=== PATIENT | male | born 1970 | race Two or more races ===

== ENCOUNTER 2021-06-22 09:24 | Outpatient (REF) | payer MEDICARE, MEDICAID, SELFPAY ==
[2021-06-22 09:41] LABS: MANUAL DIFF FLAG NO
[2021-06-22 10:29] LABS: Basophils Percent Auto 0.4 % (0-2); Eosinophils Absolute Auto 0.1 X10*3/uL (0.0-0.4); Eosinophils Percent Auto 2.3 % (0-4); Hematocrit 45.4 % (42.0-52.0); Hemoglobin 14.6 g/dl (14.0-18.0); Imm Gran Abs Auto 0.01 X10*3/uL (0.00-0.03); Imm Gran Pct Auto 0.2 % (0.0-0.4); Lymphocytes Absolute Auto 2.3 X10*3/uL (1.2-4.9); Lymphocytes Percent Auto 43.7 % (20-40); Mean Corpuscular HGB Conc 32.2 g/dl (31.0-36.0); Mean Corpuscular Hemoglobin 28.2 pg (27.0-33.0); Mean Corpuscular Volume 87.8 fL (80.0-98.0); Monocytes Absolute Auto 0.7 X10*3/uL (0.1-1.2); Monocytes Percent Auto 13.1 % (2-11); Neutrophils Absolute Auto 2.1 x10*3/uL (2.0-8.3); Neutrophils Percent Auto 40.3 % (45-73); Platelet Count 185 X10*3/uL (160-400); Red Blood Count 5.17 X10*6/uL (4.60-5.80); Red Cell Distribution Width 13.7 % (11.0-16.0); White Blood Count 5.2 X10*3/uL (4.8-10.8)
[2021-06-22 11:04] LABS: Alanine Aminotransferase 82 U/L (0-40); Albumin Level 4.2 g/dL (3.5-5.0); Alkaline Phosphatase 91 U/L (39-117); Anion Gap 13 (12-20); Aspartate Amino Transferase 47 U/L (5-37); Bilirubin Total 0.5 mg/dL (0.0-1.0); Blood Urea Nitrogen 12 mg/dL (9-16); Calcium 9.4 mg/dL (8.4-10.2); Carbon Dioxide 25 mmol/L (22-29); Chloride 104 mmol/L (96-108); Cholesterol 124 mg/dL; Estimated Glomerular Filt Rate > 60; Glucose Fasting 183 mg/dL (60-99); HDL Cholesterol 28 mg/dL; LDL Cholesterol Calculated 70 mg/dl; Potassium 4.2 mmol/L (3.3-5.1); Sodium 138 mmol/L (135-145); Total Protein 7.6 g/dL (6.5-8.0); Triglycerides 133 mg/dL
[2021-06-22 11:11] LABS: Thyroid Stimulating Hormone 1.08 uIU/mL (0.32-4.0)
[2021-06-27 14:01] LABS: Vitamin D 25-OH, D2 <4 ng/mL; Vitamin D 25-OH, D3 12 ng/mL; Vitamin D 25-OH, Total 12 ng/mL (30-100)
== END 2021-06-22 09:25 | disposition home or self-care (01) ==
LOC: HO.LAB 09:24
PROVIDERS: PCP Internal Medicine; Visit Provider Internal Medicine
DX: E66.9 Obesity, unspecified (principal); E55.9 Vitamin D deficiency, unspecified; G89.29 Other chronic pain; D64.9 Anemia, unspecified; E78.5 Hyperlipidemia, unspecified; M54.50 Low back pain, unspecified
CPT/HCPCS: 36415; 80053; 80061; 82306; 84443; 85025

== ENCOUNTER 2022-10-18 10:15 | Outpatient (REF) | payer MEDICARE, MEDICAID, SELFPAY ==
[2022-10-18 13:04] LABS: Alanine Aminotransferase 94 U/L (0-40); Albumin Level 4.1 g/dL (3.5-5.0); Alkaline Phosphatase 94 U/L (39-117); Anion Gap 12 (12-20); Aspartate Amino Transferase 68 U/L (5-37); Bilirubin Total 0.7 mg/dL (0.0-1.0); Blood Urea Nitrogen 10 mg/dL (9-16); Carbon Dioxide 23 mmol/L (22-29); Chloride 108 mmol/L (96-108); Cholesterol 125 mg/dL; Estimated Glomerular Filt Rate > 60; Glucose Fasting 114 mg/dL (60-99); HDL Cholesterol 30 mg/dL; LDL Cholesterol Calculated 66 mg/dl; Potassium 3.9 mmol/L (3.3-5.1); Sodium 139 mmol/L (135-145); Total Protein 7.8 g/dL (6.5-8.0); Triglycerides 147 mg/dL
[2022-10-18 13:21] LABS: Vitamin D 25-OH Total 37.3 ng/mL (>30)
[2022-10-18 14:02] LABS: Creatinine Urine 218.48 mg/dL; Microalbum/Creatinine Ratio Ur 6.4 ug/mg cr
== END 2022-10-18 10:16 | disposition home or self-care (01) ==
LOC: HO.LAB 10:15
PROVIDERS: PCP Internal Medicine; Visit Provider Internal Medicine
DX: E11.9 Type 2 diabetes mellitus without complications (principal); E55.9 Vitamin D deficiency, unspecified; E78.5 Hyperlipidemia, unspecified
CPT/HCPCS: 36415; 80053; 80061; 82043; 82306

== ENCOUNTER 2022-10-24 09:17 | Outpatient (AMB) | payer MEDICARE, MEDICAID, SELFPAY ==
--- NOTE | 2022-10-24 09:35 | A.OFFPC_ITS ---
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 Required: No Accompanied by: Self / Same As Patient Allergies penicillin V Allergy (Intermediate, Verified 10/24/22 09:49) rash Medication List - Last Reconciled 10/24/22 by Jonna Duarte MD blood sugar diagnostic (FreeStyle Lite Strips) Use 1 test strip once a day blood-glucose meter (FreeStyle Lite Meter kit) As directed cyclobenzaprine 10 mg PO TID 30 days lancets (FreeStyle Lancets) Use 1 lancet once a day lisinopril 2.5 mg PO DAILY 90 days metformin 500 mg PO BID 90 days trazodone 50 mg PO BEDTIME Tobacco use date assessed: 10/24/22 Dental Screening Dental Screen Date: 10/24/22 Did you have a dental visit in the last 12 months?: No Did you have a dental problem in the last 6 months where you did not have access to dental care?: No Was dental information given to patient?: Patient has dentist HPI HPI Comments History of Present Illness Details This is a 52-year-old male with hypertension and diabetes mellitus as well as insomnia that comes today for follow-up on recent labs. Blood pressure stable. A1c within goal. LDL within goal without the need for statins. Has mild transaminitis and will be referred to Gastroenterology. Still has insomnia with trazodone 50 mg and I will increase it to 100 mg. No chest pain or shortness of breath. Last diabetic eye exam was 2 years ago and will call for an appointment. Denies jaundice. [facility] Medical History Abscess Back pain Diabetes mellitus Family history of hypertension Hypovitaminosis D Insomnia Obesity (BMI 30.0-34.9) Surgical History History of ear surgery Family History Father Diabetes Hypertension Stroke Mother No problems noted. Maternal Grandmother No problems noted. Maternal Grandfather No problems noted. Social History Housing: Apartment Alcohol intake: former Patient Tobacco Use Status: Current everyday Tobacco user Tobacco use type: Cigarette Cigarettes Per Day: 6 e-Cigarette/Vaping Use: Never Used Second Hand Smoke Exposure: No service: No Current occupational status: disabled Cognitive needs: No Hearing needs: No Vision needs: Yes Questionnaire PHQ-9 Over the last 2 weeks, how often have you been bothered by any of the following problems? 1. Little interest or pleasure in doing things: not at all 2. Feeling down, depressed, or hopeless: not at all 3. Trouble falling or staying asleep, or sleeping too much: not at all 4. Feeling tired or having little energy: not at all 5. Poor appetite or overeating: not at all 6. Feeling bad about yourself - or that you are a failure or have let yourself or your family down: not at all 7. Trouble concentrating on things, such as reading the newspaper or watching television: not at all 8. Moving or speaking so slowly that other people could have noticed. Or the opposite - being so fidgety or restless that you have been moving around a lot more than usual: not at all 9. Thoughts that you would be better off or of hurting yourself in some way: not at all Total score: 0 Depression Screening Interpretation: Negative 65948 - PHQ-9 Billing: Yes Source: Developed by Drs. Serafin Dennis, Lula Mohr, Lucian Mcmillan and colleagues, with an educational lucero from [employer]. Thrive Questionnaire Date Thrive assessed: 10/24/22 I am a: Patient What is your living situation today?: I have a steady place to live Within the past 12 months, did the food you bought not last and you didn't have the money to get more?: Never true Within the past 12 months, did you worry whether your food would run out before you got money to buy more?: Never true Do you have trouble paying for medicines?: No Do you have trouble getting transportation to medical appointments?: No Do you have trouble paying your heating and electricity bill?: No Do you have trouble taking care of your child, family member or friend?: No Do you have trouble with day-to-day activities such as bathing, preparing meals, shopping, managing finances, etc.?: No Are you currently unemployed and looking for a job?: No Are you interested in more education?: No Currently or been in a relationship where the following occur: no concerns reported AUDIT C Alcohol Use Questionnaire (AUDIT-C) 1. How often do you have a drink containing alcohol?: Never Total Score: 0 ALEXANDER-7 AMB Questionnaire ALEXANDER-7 Date ALEXANDER - 7 assessed: 10/24/22 Feeling nervous, anxious, or on edge: 0 = Not at all Not being able to stop or control worryin = Not at all Worrying too much about different things: 0 = Not at all Trouble relaxin = Not at all Being so restless that it is hard to sit still: 0 = Not at all Becoming easily annoyed or irritable: 0 = Not at all Feeling afraid as if something awful might happen: 0 = Not at all Total ALEXANDER-7 score (0-4 normal; 5-9 mild; 10-14 moderate; 15-21 severe): 0 Source: Developed by Drs. Serafin Dennis, Lula Mohr, Lucian Mcmillan and colleagues, with an educational lucero from [employer]. ALEXANDER-7 Assessment Billing ALEXANDER-7 Assessment Tool: ALEXANDER-7 Assessment 43009 Review of Systems Const All systems reviewed & are unremarkable except as noted in HPI and below Eyes Reports no additional complaints, Denies change in vision and Denies other visual disturbances Card Denies chest pain at rest, Denies chest pain with activity, Denies edema, Denies irregular heart rhythm, Denies claudication, Denies dyspnea, Denies dyspnea on exertion, Denies orthopnea, Denies paroxysmal nocturnal dyspnea and Denies slow heart rate Resp Denies cough, Denies dyspnea and Denies dyspnea on exertion GI Denies abdominal pain, Denies change in bowel habits, Denies excessive flatus, Denies nausea and Denies vomiting Denies urinary hesitancy, Denies urinary incontinence and Denies urinary urgency Musc Denies abnormal gait, Denies atrophy, Denies deformity and Denies limited range of motion Skin/Breast Denies bleeding lesions, Denies changing lesions and Denies rash Neuro Denies abnormal gait and Denies lack of coordination Physical exam (Primary Care) Vital Signs: Last Vital Signs BP 120/82 10/24/22 09:37 BMI result Body Mass Index 33.0 Tobacco/Smoking Status: Tobacco use Status Tobacco use date assessed 10/24/22 10/24/22 09:42 Patient Tobacco Use Status Current everyday Tobacco 10/24/22 09:42 Tobacco use type Cigarette 10/24/22 09:42 e-Cigarette/Vaping Use Never Used 10/24/22 09:42 PHQ-9: PHQ-9 Score PHQ-9: Total score 0 10/24/22 09:42 Depression Screening Interpretation: Negative Thrive Assessment: Date of Thrive Assessment Date Thrive assessed 10/24/22 10/24/22 09:42 Currently or been in a relationship where the following occur: no concerns reported Eyes General: appearance normal, both eyes and all related structures Eyelids: Yes eyelids normal Conjunctivae: conjunctivae normal Neck Neck: Yes normal visual inspection and Yes supple Resp Effort & Inspection: normal respiratory effort Auscultation: clear to auscultation bilaterally Cardio Jugular venous distension: no JVD Rate: regular rate Rhythm: regular rhythm Heart sounds: S1 normal heart sound present and S2 normal heart sound present Extrem General: Yes full ROM Results AMB Hemoglobin A1c AMB Hemoglobin A1c 6.1 % Last Edit by RADHA Hollingsworth on 10/24/22 09:4 9 Assessment and Plan Assessment & Plan (1) Diabetes mellitus: Code(s): E11.9 - Type 2 diabetes mellitus without complications Plan: Continue metformin. A1c goal is equal or less than 7%. (2) Essential hypertension: Code(s): I10 - Essential (primary) hypertension Plan: Continue lisinopril. Blood pressure goal is equal or less than 130/80. (3) Transaminitis: Code(s): R74.01 - Elevation of levels of liver transaminase levels Plan: Referred to Gastroenterology. (4) Insomnia: Code(s): G47.00 - Insomnia, unspecified Qualifiers: Insomnia type: primary Qualified Code(s): F51.01 - Primary insomnia Plan: Increase trazodone to 100 mg at bedtime. Orders: Orders Lipid Panel 4 Months E78.5 - Hyperlipidemia, unspecified Microalbumin, Random (w Creat) 4 Months E11.9 - Type 2 diabetes mellitus without complications Comprehensive [place]. Panel Fast 4 Months E11.9 - Type 2 diabetes mellitus without complications Vitamin D 25-OH Total 4 Months E55.9 - Vitamin D deficiency, unspecified AMB Hemoglobin A1c Today E11.9 - Type 2 diabetes mellitus without complications Referrals Gastroenterology Referral R74.01 - Elevation of levels of liver transaminase levels Medications: New trazodone 100 mg PO BEDTIME PRN 90 tabs 1RF sleep 90 days Discontinued trazodone Discontinued Reason: Patient Completed Course 50 mg PO BEDTIME 30 caps 3RF Coding Level of Care Code Est Pt Level 4 (09730) Diagnoses Diabetes mellitus E11.9 Essential hypertension I10 Transaminitis R74.01 Insomnia F51.01 Insomnia type: primary Additional Codes ALEXANDER-7 Assessment Billing - ALEXANDER-7 Assessment Tool: ALEXANDER-7 Assessment 66974 ([id number]) Time Spent (min) 21
[2022-10-24 09:37] VITALS: BP 120/82; BMI 33.0
== END 2022-10-24 09:56 | disposition home or self-care (01) ==
PROVIDERS: Visit Provider Internal Medicine
DX: E11.9 Type 2 diabetes mellitus without complications (principal); I10 Essential (primary) hypertension; R74.01 Elevation of levels of liver transaminase levels; F51.01 Primary insomnia
CPT/HCPCS: 83036; 99214

== ENCOUNTER 2023-02-09 12:31 | Outpatient (AMB) | payer MEDICARE, MEDICAID, SELFPAY ==
--- NOTE | 2023-02-09 12:45 | A.OFFVIS_ITS ---
Intake Vital Signs 02/09/23 12:46 Height 5 ft 4 in Weight 196 lb 3.382 oz BMI 33.7 BP 142/81 H Blood Pressure Location Lt brachial Position Sitting Pulse 103 H Intake Visit Reasons: Elevation of liver Intake Note: José presents in the office as a new patient for elevated LFTs. CC: He states that he is is not having any concerns today. Investigative Agent Required: No Allergies penicillin V Allergy (Intermediate, Verified 02/09/23 12:47) rash HPI Elevation of liver HPI Details 52-year-old male here for initial evalua tion of elevated transaminases. He is referred by Jonna Bloom of [facility] primary care. PMX Obesity Diabetes Hypertension Back pain Insomnia * SURGICAL HISTORY Ear surgery * ALLERGIES Penicillin * [facility] LABS: Laboratory Tests 02/07/19 04/05/19 10/18/22 09:38 09:05 10:35 Estimated GFR > 60 Hgb A1c (Clinic) Total Bilirubin AST ALT Alkaline Phosphata se Hep C Viral Load <15, <1.18 H 13.5E6, 7.13 H 10/18/22 10/24/22 10:35 09:42 Estimated GFR Hgb A1c (Clinic) 6.1 H Total Bilirubin 0.7 AST 68 H ALT 94 H Alkaline Phosphata se 94 Hep C Viral Load LAST NOTE FROM 03/2019 Vital Signs34.8414 0/75 ExaminationGeneral Examination in no acute distress, well developed, we ll nourished norm ocephalic, atrauma tic mucosa moist n o suspicious lesi ons, warm and dry normal, bowel jameson nds present, soft, nontender, nondi stended Deferred a lert, oriented Assessments TODAY'S VISIT [place] [employer] He says that he is here ?for his liver. ? He was pair unaware that he had come back with another positive hepatitis C screen/viral load despite being negative when I last saw him in 2019 after treatment. He denies any returned any risky behaviors. He has a new diagnosis of diabetes however he says he is only checking his finger-stick and denies taking metformin or lisinopril it appear on his medication list. He says that he has nothing against taking them but ?sometimes the doctor orders things and then like get to the pharmacy they tell me it is not covered. ? I will send a message to his primary care provider as these are both cheat medications that should be covered and I am uncertain where the disconnect is. Obviously will repeat the labs and see if this is just a lab abnormality and go from there. He is agreeable to this. Will also get an ultrasound with elastog aleksandr. He is also overdue for a colon cancer screening but is quite unwilling to do a colonoscopy. He says he had 1 before and I look in the record in his last was in 1995 and there was a hyperplastic polyp. But he says ?I do not have any problems that way. ? 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 He continues to be unwilling so I show him a Cologuard video and he is agreeable to this. Return office visit in 6 weeks to go over any test results we have at that time. Again he was treated with the Vosevi after failing Epclusa so I am uncertain what the next step would be if he is truly positive for hepatitis C unless of course is a different genotype. Return office visit in 6 weeks COUNT INCLUDES THE [facility] Medical History Hypovitaminosis D Diabetes mellitus Obesity (BMI 30.0-34.9) Family history of hypertension Abscess Back pain Insomnia Surgical History Hx of colonoscopy History of ear surgery Family History Father Diabetes Hypertension Stroke Mother No problems noted. Maternal Grandmother No problems noted. Maternal Grandfather No problems noted. Social History Housing: Apartment Alcohol intake: former Patient Tobacco Use Status: Current everyday Tobacco user Tobacco use type: Cigarette Cigarettes Per Day: 6 e-Cigarette/Vaping Use: Never Used Second Hand Smoke Exposure: No service: No Current occupational status: disabled Cognitive needs: No Hearing needs: No Vision needs: Yes Review of Systems Const Denies fatigue, Denies fever(s), Denies night sweats, Denies poor appetite and Denies weight loss Eyes Details: glasses Reports requires corrective lenses ENT Reports Normal hearing present, Denies dysphagia, Denies odynophagia, Denies throat swelling and Denies tongue swelling Card Reports no additional complaints Resp Reports no additional complaints GI Denies abdominal pain, Denies melena, Denies bloating, Denies hematochezia, Denies constipation, Denies GI cramping, Denies dysphagia, Denies excessive flatus, Denies early satiety, Denies heartburn, Denies diarrhea, Denies nausea, Denies odynophagia, Denies vomiting and Denies hematemesis Skin/Breast Denies pruritus, Denies lesions, Denies rash and Denies jaundice Neuro Reports Normal hearing present and Denies Abnormal speech present Endo Denies fatigue Aller/Immun Denies throat swelling and Denies tongue swelling Physical Exam Vital Signs: Last Vital Signs Pulse 103 H 02/09/23 12:46 BP 142/81 H 02/09/23 12:46 BMI result Body Mass Index 33.7 Const General: cooperative, no acute distress, well developed and well groomed Nutritional Appearance: well nourished and overweight Orientation/consciousness: oriented to person, oriented to place and oriented to time Limitations: language barrier HEENT Head: Yes normocephalic and Yes atraumatic Eyes General: appearance normal, both eyes and all related structures Pupils: Equal, round and reactive pupils present Neck Neck: Yes normal visual inspection and Yes no lymphadenopathy Thyroid: Thyroid normal Resp Effort & Inspection: normal respiratory effort and able to speak in complete sentences Auscultation: clear to auscultation bilaterally Cardio Rate: regular rate Rhythm: regular rhythm Heart sounds: Normal, physiologic split S2 sound present Peripheral pulses: radial pulses present and posterior tibial pulses present GI Inspection: No distended, No Abdominal panniculus present and Yes obesity Palpation (GI): Soft to palpation, nontender, no guarding, not rigid and No hepatosplenomegaly present Percussion: Yes normal to percussion Auscultation: normal bowel sounds Rectal Exam - Male: Yes deferred Skin General skin exam: no rashes or lesions noted, turgor normal, skin not dry, no jaundice, No spider nevi and no striae Rashes: no rashes Nails: normal Neuro General: oriented to person, oriented to place and oriented to time Cranial nerves: Yes Equal, round and reactive pupils present and Yes Normal hearing present Speech: No Abnormal speech present Extrem General: Yes normal to inspection, No clubbing, No cyanosis and No edema Psych Appearance: grossly normal and well kempt Mental Status: mental status grossly normal Speech and movement: Normal speech and movement present Affect: normal affect Attitude: cooperative Thought process: Normal thought process present and not confabulating Thought content: Normal thought content present Insight: Limited insight present (Psych) Judgement: Limited judgement present (Psych) Assessment & Plan Assessment & Plan (1) Transaminitis: Code(s): R74.01 - Elevation of levels of liver transaminase levels (2) Hepatitis C: Code(s): B19.20 - Unspecified viral hepatitis C without hepatic coma (3) Colon cancer screening: Code(s): Z12.11 - Encounter for screening for malignant neoplasm of colon (4) Colonoscopy refused: Code(s): Z53.20 - Procedure and treatment not carried out because of patient's decision for unspecified reasons Plan [place] [employer] Live He says that he is here ?for his liver. ? He was pair unaware that he had come back with another positive hepatitis C screen/viral load despite being negative when I last saw him in 2019 after treatment. He denies any returned any risky behaviors. He has a new diagnosis of diabetes however he says he is only checking his finger-stick and denies taking metformin or lisinopril it appear on his medication list. He says that he has nothing against taking them but ?sometimes the doctor orders things and then like get to the pharmacy they tell me it is not covered. ? I will send a message to his primary care provider as these are both inexpensive medications that should be covered and I am uncertain where the disconnect is. Obviously will repeat the labs and see if this is just a lab abnormality and go from there. He is agreeable to this. Will also get an ultrasound with elastography. He is also overdue for a colon cancer screening but is quite unwilling to do a colonoscopy. He says he had 1 before and I look in the record in his last was in 1995 and there was a hyperplastic polyp. But he says ?I do not have any problems that way. ? 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 He continues to be unwilling so I show him a Cologuard video and he is agreeable to this. Return office visit in 6 weeks to go over any test results we have at that time. Again he was treated with the Vosevi after failing Epclusa so I am uncertain what the next step would be if he is truly positive for hepatitis C unless of course is a different genotype. Return office visit in 6 weeks Orders: Orders Complete Blood Count Auto Diff 02/09/23 R74. - Elevation of levels of liver transaminase levels, B19.20 - Unspecified viral hepatitis C without hepatic coma Liver Panel 02/09/23 R74. - Elevation of levels of liver transaminase levels, B19.20 - Unspecified viral hepatitis C without hepatic coma Smooth Muscle Antibody 02/09/23 R74. - Elevation of levels of liver transaminase levels, B19.20 - Unspecified viral hepatitis C without hepatic coma Hepatitis C Genotype 02/09/23 R74.01 - Elevation of levels of liver transaminase levels, B19.20 - Unspecified viral hepatitis C without hepatic coma HIV Ab/Ag 02/09/23 R74.01 - Elevation of levels of liver transaminase levels, B19.20 - Unspecified viral hepatitis C without hepatic coma Gamma Glutamyl Transpeptidase 02/09/23 R74.01 - Elevation of levels of liver transaminase levels, B19.20 - Unspecified viral hepatitis C without hepatic coma US abdomen comp w elastography 02/09/23 R74. - Elevation of levels of liver transaminase levels, B19.20 - Unspecified viral hepatitis C without hepatic coma Mitochondrial Antibody 02/09/23 R74.01 - Elevation of levels of liver transaminase levels, B19.20 - Unspecified viral hepatitis C without hepatic coma Hepatitis A,B,C Profile 02/09/23 R74.01 - Elevation of levels of liver transaminase levels, B19.20 - Unspecified viral hepatitis C without hepatic coma Hepatitis C Viral Load 02/09/23 R74.01 - Elevation of levels of liver transaminase levels, B19.20 - Unspecified viral hepatitis C without hepatic coma TSH reflex Free T4 02/09/23 R74.01 - Elevation of levels of liver transaminase levels, B19.20 - Unspecified viral hepatitis C without hepatic coma Ceruloplasmin 02/09/23 R74.01 - Elevation of levels of liver transaminase levels, B19.20 - Unspecified viral hepatitis C without hepatic coma Alpha Fetoprotein 02/09/23 R74.01 - Elevation of levels of liver transaminase levels, B19.20 - Unspecified viral hepatitis C without hepatic coma Ferritin 02/09/23 R74.01 - Elevation of levels of liver transaminase levels, B19.20 - Unspecified viral hepatitis C without hepatic coma Medications: Discontinued metformin Discontinued Reason: Doctor's Order 500 mg PO BID 90 days 180 tabs 1RF E11.9 - Type 2 diabetes mellitus without complications lisinopril Discontinued Reason: Doctor's Order 2.5 mg PO DAILY 90 days 90 tabs 1RF I10 - Essential (primary) hypertension Coding Level of Care Code Est Pt Level 4 (31487) Diagnoses Transaminitis R74.01 Hepatitis C B19.20 Colon cancer screening Z12.11 Colonoscopy refused Z53.20
[2023-02-09 12:46] VITALS: BP 142/81; PULSE 103; BMI 33.7
== END 2023-02-09 13:30 | disposition home or self-care (01) ==
PROVIDERS: PCP Internal Medicine; Visit Provider Nurse Practitioner
DX: R74.01 Elevation of levels of liver transaminase levels (principal); B19.20 Unspecified viral hepatitis C without hepatic coma; Z12.11 Encounter for screening for malignant neoplasm of colon; Z53.20 Procedure and treatment not carried out because of patient's decision for unspecified reasons
CPT/HCPCS: 99214

== ENCOUNTER → 2023-02-09 12:31 | Outpatient (BNVA) | payer MEDICARE, MEDICAID, SELFPAY | PROVIDERS: PCP Internal Medicine; Visit Provider Nurse Practitioner | DX: R74.01 Elevation of levels of liver transaminase levels (principal); B19.20 Unspecified viral hepatitis C without hepatic coma | CPT/HCPCS: 99212 ==

== ENCOUNTER 2023-03-14 09:50 | Outpatient (REF) | payer MEDICARE, MEDICAID, SELFPAY ==
--- NOTE | ~2023-03-14 | US_ITS ---
EXAMINATION: US COMPLETE ABDOMEN WITH LIVER ELASTOGRAPHY CLINICAL INFORMATION: Elevated serum AST and ALT levels. COMPARISON: Abdominal ultrasound dated 10/31/2018. TECHNIQUE: Real-time imaging of the abdominal viscera. Noninvasive ultrasound liver fibrosis assessment is performed using Lyn ElastPQ point quantification shear wave elastography (2D-SWE) with a C5-2 MHz transducer. Multiple elastography samples are obtained. FINDINGS: PANCREAS: Largely obscured by overlapping bowel gas. ABDOMINAL AORTA: The proximal, middle, and distal aortic segments are normal in caliber. INFERIOR VENA CAVA: Visualized portions are normal. LIVER: The liver demonstrates normal size, contour and heterogeneously increased echogenicity. No focal lesion or intrahepatic biliary duct dilatation. The right lobe measures 15.4 cm in length. The left lobe measures 11.0 cm in length. Portal flow is towards the liver (hepatopetal). Shear wave liver elastography median stiffness is 1.97 m/s (reference: normal median stiffness is 1.3 m/s or less). IQR/median stiffness to assess sampling precision is 0.04 (reference: good quality data set is IQR/median stiffness of 0.15 or less). GALLBLADDER: Normal. The gallbladder is physiologically distended without evidence of stones, sludge, polyps, wall thickening or pericholecystic fluid. COMMON BILE DUCT: Normal in caliber measuring 0.3 cm in diameter. RIGHT KIDNEY: At the lower pole, a 6 mm nonobstructing calculus is seen. No hydronephrosis. No renal calculi or focal parenchymal lesions. The kidney measures 11.4 cm in maximum dimension. A 1.5 cm benign, simple right renal cyst is seen. LEFT KIDNEY: There are echogenic foci which do not conform ultrasound criteria for calculi. No hydronephrosis. No definite renal calculi or focal parenchymal lesions. The kidney measures 12.4 cm in maximum dimension. SPLEEN: Normal. The spleen measures 11.7 cm in maximum dimension. FREE FLUID: None. US/US abdomen comp w elastography IMPRESSION: 1. There is generalized increase in hepatic echotexture, consistent with fatty infiltration or hepatocellular disease. Please correlate clinically. No focal hepatic mass or intrahepatic biliary dilatation is seen. 2. Liver elastography: Measurements are suggestive of compensated advanced chronic liver disease but need further test for confirmation. 3. A 6 mm nonobstructing right renal lower pole calculus is seen. 4. Technically limited ultrasound examination of the pancreas. REFERENCE: Society of Radiologists in Ultrasound Liver Stiffness Thresholds (2020): LIVER STIFFNESS THRESHOLDS: *Liver Stiffness equal or less than 1.3 m/s: High probability of being normal. *Liver Stiffness less than 1.7 m/s: In the absence of other known clinical signs, rules out compensated advanced chronic liver disease. *Liver Stiffness 1.7-2.1 m/s: Suggestive of compensated advanced chronic liver disease but need further test for confirmation. *Liver Stiffness over 2.1 m/s: Rules in compensated advanced chronic liver disease. *Liver Stiffness over 2.4 m/s: Suggestive of clinically significant portal hypertension. QUALITY OF DATA SET: *IQR/Median value equal or less than 0.15 implies a quality data set. *IQR/Median value over 0.15 implies a poor quality data set. SIGNIFICANT CHANGE FROM PRIOR EXAM: Significant change if liver stiffness measurement is 10% or greater from prior exam. OTHER CONSIDERATIONS: The stage of liver fibrosis may be overestimated in the setting of acute hepatitis, liver inflammation, elevated liver function tests, hepatic vascular congestion, obstructive cholestasis, non-fasting state, and infiltrative diseases such as amyloidosis and lymphoma. In some patients with NAFLD, the liver stiffness thresholds for compensated advanced chronic liver disease may be lower. In causes other than viral hepatitis and NAFLD, liver stiffness thresholds are not well established.
== END 2023-03-14 09:51 | disposition home or self-care (01) ==
LOC: HO.US 09:50
PROVIDERS: Visit Provider Nurse Practitioner
DX: R74.01 Elevation of levels of liver transaminase levels (principal); B19.20 Unspecified viral hepatitis C without hepatic coma
CPT/HCPCS: 76705; 76981

== ENCOUNTER 2023-03-21 08:23 | Outpatient (REF) | payer MEDICARE, MEDICAID, SELFPAY ==
[2023-03-21 09:25] LABS: Microalbum/Creatinine Ratio Ur 4.1 ug/mg cr (<30)
[2023-03-21 09:27] LABS: Alanine Aminotransferase 65 U/L (0-40); Albumin Level 4.1 g/dL (3.5-5.0); Alkaline Phosphatase 86 U/L (39-117); Anion Gap 11 (12-20); Aspartate Amino Transferase 48 U/L (5-37); Bilirubin Total 0.5 mg/dL (0.0-1.0); Blood Urea Nitrogen 10 mg/dL (9-16); Calcium 9.4 mg/dL (8.4-10.2); Carbon Dioxide 26 mmol/L (22-29); Chloride 109 mmol/L (96-108); Cholesterol 110 mg/dL (<200); Estimated Glomerular Filt Rate > 60; Glucose Fasting 122 mg/dL (60-99); HDL Cholesterol 32 mg/dL (>40); LDL Cholesterol Calculated 59 mg/dL (<100); Potassium 4.2 mmol/L (3.3-5.1); Sodium 142 mmol/L (135-145); Total Protein 7.9 g/dL (6.5-8.0); Triglycerides 97 mg/dL (<150)
[2023-03-21 09:47] LABS: Vitamin D 25-OH Total 24.8 ng/mL (>30)
== END 2023-03-21 08:24 | disposition home or self-care (01) ==
LOC: HO.LAB 08:23
PROVIDERS: PCP Internal Medicine; Visit Provider Nurse Practitioner
DX: E11.9 Type 2 diabetes mellitus without complications (principal); E55.9 Vitamin D deficiency, unspecified; E78.5 Hyperlipidemia, unspecified
CPT/HCPCS: 36415; 80053; 80061; 82043; 82306; 82570

== ENCOUNTER 2023-03-23 13:48 | Outpatient (AMB) | payer MEDICARE, MEDICAID, SELFPAY ==
--- NOTE | 2023-03-23 13:51 | A.OFFVIS_ITS ---
Intake Vital Signs 03/23/23 13:52 Height 5 ft 4 in Weight 197 lb 8.547 oz BMI 33.9 BP 149/90 H Blood Pressure Location Lt brachial Position Sitting Pulse 94 Intake Visit Reasons: 6 week follow up cologuard results Intake Note: José presents in the office today in 6 weeks follow up of cologuard. CC: Patient reports doing well and denies having any GI symptoms today. Worship Director Required: No Accompanied by: Self / Same As Patient Allergies penicillin V Allergy (Intermediate, Verified 03/23/23 13:53) rash HPI 6 week follow up cologuard results HPI Details Assessment & Plan (1) Transaminitis: Code(s): R74.01 - Elevation of levels of liver transaminase levels (2) Hepatitis C: Code(s): B19.20 - Unspecified viral hepatitis C without hepatic coma (3) Colon cancer screening: Code(s): Z12.11 - Encounter for screening for malignant neoplasm of colon (4) Colonoscopy refused: Code(s): Z53.20 - Procedure and treatment not carried out because of patient's decision for unspecified reasons Plan [place] [facility] He says that he is here ?for his liver. ? He was pair unaware that he had come back with another positive hepatitis C screen/viral load despite being negative when I last saw him in 2019 after treatment. He denies any returned any risky behaviors. He has a new diagnosis of diabetes however he says he is only checking his finger-stick and denies taking metformin or lisinopril it appear on his medication list. He says that he has nothing against taking them but ?sometimes the doctor orders things and then like get to the pharmacy they tell me it is n ot covered. ? I will send a message to his primary care provider as these are both inexpensive medications that should be covered and I am uncertain where the disconnect is. Obviously will repeat the labs and see if this is just a lab abnormality and go from there. He is agreeable to this. Will also get an ultrasound with elastography. He is also overdue for a colon cancer screening but is quite unwilling to do a colonoscopy. He says he had 1 before and I look in the record in his last was in 1995 and there was a hyperplastic polyp. But he says ?I do not have any problems that way. ? I then explained to him that you would not have symptoms with colon cancer until it had already spread to other organs so it is very important to stay home visitor home base head start in terms of detection. He continues to be unwilling so I show him a Cologuard video and he is agreeable to this. Return office visit in 6 weeks to go over any test results we have at that time. Again he was treated with the Vosevi after failing Epclusa so I am uncertain what the next step would be if he is truly positive for hepatitis C unless of course is a different genotype. Return office visit in 6 weeks Orders: Orders Complete Blood Count Auto Diff 02/09/23 R74. - Elevation of levels of liver transaminase levels, B19.20 - Unspecified viral hepatitis C without hepatic coma Liver Panel 02/09/23 R74. - Elevation of levels of liver transaminase levels, B19.20 - Unspecified viral hepatitis C without hepatic coma Smooth Muscle Antibody 02/09/23 R74. - Elevation of levels of liver transaminase levels, B19.20 - Unspecified viral hepatitis C without hepatic coma Hepatitis C Genotype 02/09/23 R74.01 - Elevation of levels of liver transaminase levels, B19.20 - Unspecified viral hepatitis C without hepatic coma HIV Ab/Ag 02/09/23 R74. - Elevation of levels of liver transaminase levels, B19.20 - Unspecified viral hepatitis C without hepatic coma Gamma Glutamyl Transpeptidase 02/09/23 R74.01 - Elevation of levels of liver transaminase levels, B19.20 - Unspecified viral hepatitis C without hepatic coma US abdomen comp w elastography 02/09/23 R74. - Elevation of levels of liver transaminase levels, B19.20 - Unspecified viral hepatitis C without hepatic coma Mitochondrial Antibody 02/09/23 R74.01 - Elevation of levels of liver transaminase levels, B19.20 - Unspecified viral hepatitis C without hepatic coma Hepatitis A,B,C Profile 02/09/23 R74. - Elevation of levels of liver transaminase levels, B19.20 - Unspecified viral hepatitis C without hepatic coma Hepatitis C Viral Load 02/09/23 R74.01 - Elevation of levels of liver transaminase levels, B19.20 - Unspecified viral hepatitis C without hepatic coma TSH reflex Free T4 02/09/23 R74. - Elevation of levels of liver transaminase levels, B19.20 - Unspecified viral hepatitis C without hepatic coma Ceruloplasmin 02/09/23 R74.01 - Elevation of levels of liver transaminase levels, B19.20 - Unspecified viral hepatitis C without hepatic coma Alpha Fetoprotein 02/09/23 R74.01 - Elevation of levels of liver transaminase levels, B19.20 - Unspecified viral hepatitis C without hepatic coma Ferritin 02/09/23 R74.01 - Elevation of levels of liver transaminase levels, B19.20 - Unspecified viral hepatitis C without hepatic coma Medications: Discontinued metformin Discontinued Reason: Doctor's Order 500 mg PO BID 90 days 180 tabs 1RF E11.9 - Type 2 diabetes mellitus without complications lisinopril Discontinued Reason: Doctor's Order 2.5 mg PO DAILY 90 days 90 tabs 1RF I10 - Essential (primary) hypertension LABS: Cologuard is negative ULTRASOUND OF THE ABDOMEN WITH ELASTOGRAPHY 03/15/23 (F2) FINDINGS: PANCREAS: Largely obscured by overlapping bowel gas. ABDOMINAL AORTA: The proximal, middle, and distal aortic segments are normal in caliber. INFERIOR VENA CAVA: Visualized portions are normal. LIVER: The liver demonstrates normal size, contour and heterogeneously increased echogenicity. No focal lesion or intrahepatic biliary duct dilatation. The right lobe measures 15.4 cm in length. The left lobe measures 11.0 cm in length. Portal flow is towards the liver (hepatopetal). Shear wave liver elastography median stiffness is 1.97 m/s (reference: normal median stiffness is 1.3 m/s or less). IQR/median stiffness to assess sampling precision is 0.04 (reference: good quality data set is IQR/median stiffness of 0.15 or less). GALLBLADDER: Normal. The gallbladder is physiologically distended without evidence of stones, sludge, polyps, wall thickening or pericholecystic fluid. COMMON BILE DUCT: Normal in caliber measuring 0.3 cm in diameter. RIGHT KIDNEY: At the lower pole, a 6 mm nonobstructing calculus is seen. No hydronephrosis. No renal calculi or focal parenchymal lesions. The kidney measures 11.4 cm in maximum dimension. A 1.5 cm benign, simple right renal cyst is seen. LEFT KIDNEY: There are echogenic foci which do not conform ultrasound criteria for calculi. No hydronephrosis. No definite renal calculi or focal parenchymal lesions. The kidney measures 12.4 cm in maximum dimension. SPLEEN: Normal. The spleen measures 11.7 cm in maximum dimension. FREE FLUID: None. US/US abdomen comp w elastography IMPRESSION: 1. There is generalized increase in hepa tic echotexture, consistent with fatty infiltration or hepatocellular disease. Please correlate clinically. No focal hepatic mass or intrahepatic biliary dilatation is seen. 2. Liver elastography: Measurements are suggestive of compensated advanced chronic liver disease but need further test for confirmation. 3. A 6 mm nonobstructing right renal low er pole calculus is seen. 4. Technically limited ultrasound examin ation of the pancreas. TODAY'S VISIT [place] [facility] He never performed the blood work. He had labs drawn 2 days ago, but it only appears to be from his PCP that was processed - so I will have my staff call the lab to verify. They did not draw the labs! We review the US and the Cologuard. We will repeat the Cologuard in 3 years. He return office visit in 8 weeks to evaluate whether he still has a active hepatitis C infection or not. [facility] Medical History Hypovitaminosis D Diabetes mellitus Obesity (BMI 30.0-34.9) Family history of hypertension Abscess Back pain Insomnia Surgical History Hx of colonoscopy History of ear surgery Family History Father Diabetes Hypertension Stroke Mother No problems noted. Maternal Grandmother No problems noted. Maternal Grandfather No problems noted. Social History Housing: Apartment Alcohol intake: former Patient Tobacco Use Status: Current everyday Tobacco user Tobacco use type: Cigarette Cigarettes Per Day: 6 e-Cigarette/Vaping Use: Never Used Second Hand Smoke Exposure: No service: No Current occupational status: disabled Cognitive needs: No Hearing needs: No Vision needs: Yes Review of Systems Const Denies fatigue, Denies fever(s), Denies night sweats, Denies poor appetite and Denies weight loss Eyes Details: glasses Reports requires corrective lenses ENT Reports Normal hearing present, Denies dental pain, Denies dysphagia, Denies hearing loss, Denies mouth pain, Denies odynophagia, Denies throat swelling, Denies tongue swelling and Reports other (Dentition adequate) Card Reports no additional complaints Resp Reports no additional complaints GI Denies abdominal pain, Denies melena, Denies bloating, Denies hematochezia, Denies constipation, Denies GI cramping, Denies dysphagia, Denies excessive flatus, Denies early satiety, Denies heartburn, Denies diarrhea, Denies nausea, Denies odynophagia, Denies vomiting and Denies hematemesis Skin/Breast Denies pruritus, Denies lesions, Denies rash and Denies jaundice Neuro Reports Normal hearing present and Denies Abnormal speech present Endo Denies fatigue Aller/Immun Denies throat swelling and Denies tongue swelling Physical Exam Vital Signs: Last Vital Signs Pulse 94 03/23/23 13:52 BP 149/90 H 03/23/23 13:52 BMI result Body Mass Index 33.9 Const General: cooperative, no acute distress, well developed and well groomed Nutritional Appearance: well nourished and obese Orientation/consciousness: oriented to person, oriented to place and oriented to time Limitations: language barrier HEENT Head: Yes normocephalic and Yes atraumatic Eyes General: appearance normal, both eyes and all related structures Pupils: Equal, round and reactive pupils present Neck Neck: Yes normal visual inspection and Yes no lymphadenopathy Thyroid: Thyroid normal Resp Effort & Inspection: normal respiratory effort and able to speak in complete sentences Auscultation: clear to auscultation bilaterally Cardio Rate: regular rate Rhythm: regular rhythm Heart sounds: Normal, physiologic split S2 sound present Peripheral pulses: radial pulses present and posterior tibial pulses present GI Inspection: No distended, No Abdominal panniculus present and Yes obesity Palpation (GI): Soft to palpation, nontender, no guarding, not rigid and No hepatosplenomegaly present Percussion: Yes normal to percussion Auscultation: normal bowel sounds Rectal Exam - Male: Yes deferred Skin General skin exam: no rashes or lesions noted, turgor normal, skin not dry, no jaundice, No spider nevi and no striae Rashes: no rashes Nails: normal Neuro General: oriented to person, oriented to place and oriented to time Cranial nerves: Yes Equal, round and reactive pupils present and Yes Normal hearing present Speech: No Abnormal speech present Extrem General: Yes normal to inspection, No clubbing, No cyanosis and No edema Psych Appearance: grossly normal and well kempt Mental Status: mental status grossly normal Speech and movement: Normal speech and movement present Affect: normal affect Attitude: cooperative Thought process: Normal thought process present and not confabulating Thought content: Normal thought content present Insight: Limited insight present (Psych) Judgement: Limited judgement present (Psych) Results Reviewed Results Reviewed: LABS: Cologuard is negative ULTRASOUND OF THE ABDOMEN WITH ELASTOGRAPHY 03/15/23 (F2) FINDINGS: PANCREAS: Largely obscured by overlapping bowel gas. ABDOMINAL AORTA: The proximal, middle, and distal aortic segments are normal in caliber. INFERIOR VENA CAVA: Visualized portions are normal. LIVER: The liver demonstrates normal size, contour and heterogeneously increased echogenicity. No focal lesion or intrahepatic biliary duct dilatation. The right lobe measures 15.4 cm in length. The left lobe measures 11.0 cm in length. Portal flow is towards the liver (hepatopetal). Shear wave liver elastography median stiffness is 1.97 m/s (reference: normal median stiffness is 1.3 m/s or less). IQR/median stiffness to assess sampling precision is 0.04 (reference: good quality data set is IQR/median stiffness of 0.15 or less). GALLBLADDER: Normal. The gallbladder is physiologically distended without evidence of stones, sludge, polyps, wall thickening or pericholecystic fluid. COMMON BILE DUCT: Normal in caliber measuring 0.3 cm in diameter. RIGHT KIDNEY: At the lower pole, a 6 mm nonobstructing calculus is seen. No hydronephrosis. No renal calculi or focal parenchymal lesions. The kidney measures 11.4 cm in maximum dimension. A 1.5 cm benign, simple right renal cyst is seen. LEFT KIDNEY: There are echogenic foci which do not conform ultrasound criteria for calculi. No hydronephrosis. No definite renal calculi or focal parenchymal lesions. The kidney measures 12.4 cm in maximum dimension. SPLEEN: Normal. The spleen measures 11.7 cm in maximum dimension. FREE FLUID: None. US/US abdomen comp w elastography IMPRESSION: 1. There is generalized increase in hepatic echotexture, consistent with fatty infiltration or hepatocellular disease. Please correlate clinically. No focal hepatic mass or intrahepatic biliary dilatation is seen. 2. Liver elastography: Measurements are suggestive of compensated advanced chronic liver disease but need further test for confirmation. 3. A 6 mm nonobstructing right renal lower pole calculus is seen. 4. Technically limited ultrasound examination of the pancreas Assessment & Plan Assessment & Plan (1) Colon cancer screening: Comment: 2022=negative Cologuard repeat in 3 years Code(s): Z12.11 - Encounter for screening for malignant neoplasm of colon (2) Hepatitis C: Comment: ULTRASOUND OF THE ABDOMEN WITH ELASTOGRAPHY 03/15/23 (F2) IMPRESSION: 1. There is generalized increase in hepatic echotexture, consistent with fatty infiltration or hepatocellular disease. Please correlate clinically. No focal hepatic mass or intrahepatic biliary dilatation is seen. 2. Liver elastography: Measurements are suggestive of compensated advanced chronic liver disease but need further test for confirmation. 3. A 6 mm nonobstructing right renal lower pole calculus is seen. 4. Technically limited ultrasound examination of the pancreas Code(s): B19.20 - Unspecified viral hepatitis C without hepatic coma (3) Colonoscopy refused: Comment: 2022=negative Cologuard repeat in 3 years Code(s): Z53.20 - Procedure and treatment not carried out because of patient's decision for unspecified reasons Plan [place] [facility] He never performed the blood work. He had labs drawn 2 days ago, but it only appears to be from his PCP that was processed - so I will have my staff call the lab to verify. They did not draw the labs! We review the US and the Cologuard. We will repeat the Cologuard in 3 years. He return office visit in 8 weeks to evaluate whether he still has a active hepatitis C infection or not. Coding Level of Care Code Est Pt Level 3 (36425) Diagnoses Colon cancer screening Z12.11 Hepatitis C B19.20 Colonoscopy refused Z53.20
[2023-03-23 13:52] VITALS: BP 149/90; PULSE 94; BMI 33.9
== END 2023-03-23 14:37 | disposition home or self-care (01) ==
PROVIDERS: PCP Internal Medicine; Visit Provider Nurse Practitioner
DX: B19.20 Unspecified viral hepatitis C without hepatic coma (principal)
CPT/HCPCS: 99213

== ENCOUNTER → 2023-03-23 13:48 | Outpatient (BNVA) | payer MEDICARE, MEDICAID, SELFPAY | PROVIDERS: PCP Internal Medicine; Visit Provider Nurse Practitioner | DX: Z12.11 Encounter for screening for malignant neoplasm of colon (principal); B19.20 Unspecified viral hepatitis C without hepatic coma; Z53.20 Procedure and treatment not carried out because of patient's decision for unspecified reasons | CPT/HCPCS: 99212 ==

== ENCOUNTER 2023-05-18 08:44 | Outpatient (REF) | payer MEDICARE, MEDICAID, SELFPAY ==
[2023-05-18 09:44] LABS: MANUAL DIFF FLAG NO
[2023-05-18 10:07] LABS: Basophils Percent Auto 0.4 % (0-2); Eosinophils Absolute Auto 0.1 X10*3/uL (0.0-0.4); Eosinophils Percent Auto 2.3 % (0-4); Hematocrit 42.4 % (42.0-52.0); Hemoglobin 13.8 g/dl (14.0-18.0); Imm Gran Abs Auto 0.01 X10*3/uL (0.00-0.03); Imm Gran Pct Auto 0.2 % (0.0-0.4); Lymphocytes Absolute Auto 1.9 X10*3/uL (1.2-4.9); Lymphocytes Percent Auto 38.6 % (20-40); Mean Corpuscular HGB Conc 32.5 g/dl (31.0-36.0); Mean Corpuscular Hemoglobin 27.7 pg (27.0-33.0); Mean Platelet Volume 10.8 fL (9.4-12.4); Monocytes Absolute Auto 0.6 X10*3/uL (0.1-1.2); Neutrophils Absolute Auto 2.2 x10*3/uL (2.0-8.3); Neutrophils Percent Auto 46.5 % (45-73); Platelet Count 216 X10*3/uL (160-400); Red Blood Count 4.99 X10*6/uL (4.60-5.80); White Blood Count 4.8 X10*3/uL (4.8-10.8)
[2023-05-18 10:41] LABS: Alanine Aminotransferase 83 U/L (0-40); Albumin Level 4.2 g/dL (3.5-5.0); Alkaline Phosphatase 98 U/L (39-117); Aspartate Amino Transferase 61 U/L (5-37); Bilirubin Direct 0.2 mg/dL (0.0-0.5); Bilirubin Total 0.5 mg/dL (0.0-1.0); Gamma Glutamyl Transpeptidase 52 U/L (11-51); Total Protein 8.1 g/dL (6.5-8.0)
[2023-05-18 10:55] LABS: HBS Num1 44.35 mIU/mL (0-7.99); HBc Num1 0.08 S/CO (0.00-0.79); HBsAGNum1 0.33 S/CO (0.00-0.99); HIV AB/AG Nonreactive (Nonreactive); HIV Num 1 0.06 S/CO (0.00-0.99); Hepatitis A Antibody IgM 0.18 Index (0-0.79); Hepatitis B Core Antibody Nonreactive (Nonreactive); Hepatitis B Surface Antigen Negative (Negative); ~HepC Num1 7.26 S/CO (0.00-0.79); ~Hepatitis A Antibody IgM Nonreactive (Nonreactive); ~Hepatitis B Surface Antibody REACTIVE (Nonreactive); ~Hepatitis C Antibody Reactive (Nonreactive)
[2023-05-18 11:05] LABS: Ferritin 29 ng/mL (20-250); TSH reflex Free T4 1.72 uIU/mL (0.32-4.0)
[2023-05-19 13:18] LABS: Ceruloplasmin 28 mg/dL (18-36)
[2023-05-19 13:44] LABS: Alpha Fetoprotein 4.6 ng/mL (<6.1)
[2023-05-19 15:28] LABS: HCV RNA PCR Qn 6.99 Log IU/mL (NOT DETECTED); HCV RNA PCR Qn 9720000 IU/mL (NOT DETECTED)
[2023-05-24 13:58] LABS: Smooth Muscle Antibody 20 U (<20)
[2023-05-24 18:04] LABS: HCV Genotype LiPA 3
[2023-05-25 12:07] LABS: Mitochondrial Antibodies NEGATIVE (NEGATIVE)
== END 2023-05-18 08:45 | disposition home or self-care (01) ==
LOC: HO.LAB 08:44
PROVIDERS: PCP Internal Medicine; Visit Provider Nurse Practitioner
DX: R74.01 Elevation of levels of liver transaminase levels (principal); B19.20 Unspecified viral hepatitis C without hepatic coma
CPT/HCPCS: 36415; 80076; 82105; 82390; 82728; 82977; 84443; 85025; 86015; 86381; 86704; 86706; 86709; 86803; 87340; 87389; 87522; 87902; 99212

== ENCOUNTER 2023-05-18 08:45 | Outpatient (AMB) | payer MEDICARE, MEDICAID, SELFPAY ==
--- NOTE | 2023-05-18 08:47 | A.OFFVIS_ITS ---
Intake Vital Signs 05/18/23 08:58 Height 5 ft 4 in Weight 200 lb 9.93 oz BMI 34.4 BP 144/89 H Blood Pressure Location Rt brachial Position Sitting Pulse 85 Intake Visit Reasons: 8 weeks f/u labs Intake Note: Patient returns to in office visit today in follow up of labs. CC: He states he is feeling better and denies having any new symptoms or concerns. Supervisor [employer] Required: Yes Supervisor [employer] Name: Shabbir Accompanied by: Self / Same As Patient Allergies penicillin V Allergy (Intermediate, Verified 05/18/23 08:59) rash HPI 8 weeks f/u labs HPI Details Assessment & Plan (1) Colon cancer screening: Comment: 2022=negative Cologuard repeat in 3 year s Code(s): Z12.11 - Encounter for screening for malignant neoplasm of colon (2) Hepatitis C: Comment: ULTRASOUND OF THE ABDOMEN WITH ELASTOGRAPHY 03/15/23 (F2) IMPRESSION: 1. There is generalized increase in hepa tic echotexture, consistent with fatty infiltration or hepatocellular disease. Please correlate clinically. No focal hepatic mass or intrahepatic biliary dilatation is seen. 2. Liver elastography: Measurements are suggestive of compensated advanced chronic liver disease but need further test for confirmation. 3. A 6 mm nonobstructing right renal low er pole calculus is seen. 4. Technically limited ultrasound examin ation of the pancreas Code(s): B19.20 - Unspecified viral hepatitis C without hepatic coma (3) Colonoscopy refused: Comment: 2022=negative Cologuard repeat in 3 year s Code(s): Z53.20 - Procedure and treatment not carried out because of patient's decision for unspecified reasons Plan [place] [facility] He never performed the blood work. He had labs drawn 2 days ago, but it only appears to be from his PCP that was processed - so I will have my staff call the lab to verify. They did not draw the labs! We review the US and the Cologuard. We will repeat the Cologuard in 3 years. He return office visit in 8 weeks to evaluate whether he still has a active hepatitis C infection or not. LABS: (FROM 03/2023 VISIT) NOT OBTAINED Complete Blood Cou nt Auto Diff 02/09/23 R74.01 - Elevation of levels of live r transaminase lev els, B19.20 - Unsp ecified viral hepa titis C without he patic coma Liver Panel 02/09/23 R74.01 - Elevation of levels of live r transaminase lev els, B19.20 - Unsp ecified viral hepa titis C without he patic coma Smooth Muscle Anti body 02/09/23 R74.01 - Elevation of levels of live r transaminase lev els, B19.20 - Unsp ecified viral hepa titis C without he patic coma Hepatitis C Genoty pe 02/09/23 R74.01 - Elevation of levels of live r transaminase lev els, B19.20 - Unsp ecified viral hepa titis C without he patic coma HIV Ab/Ag 02/09/23 R74.01 - Elevation of levels of live r transaminase lev els, B19.20 - Unsp ecified viral hepa titis C without he patic coma Gamma Glutamyl Tra nspeptidase 02/09/23 R74.01 - Elevation of levels of live r transaminase lev els, B19.20 - Unsp ecified viral hepa titis C without he patic coma US abdomen comp w elastography 02/09/23 R74.01 - Elevation of levels of live r transaminase lev els, B19.20 - Unsp ecified viral hepa titis C without he patic coma Mitochondrial Anti body 02/09/23 R74.01 - Elevation of levels of live r transaminase lev els, B19.20 - Unsp ecified viral hepa titis C without he patic coma Hepatitis A,B,C Pr ofile 02/09/23 R74.01 - Elevation of levels of live r transaminase lev els, B19.20 - Unsp ecified viral hepa titis C without he patic coma Hepatitis C Viral Load 02/09/23 R74.01 - Elevation of levels of live r transaminase lev els, B19.20 - Unsp ecified viral hepa titis C without he patic coma TSH reflex Free T4 02/09/23 R74.01 - Elevation of levels of live r transaminase lev els, B19.20 - Unsp ecified viral hepa titis C without he patic coma Ceruloplasmin 02/09/23 R74.01 - Elevation of levels of live r transaminase lev els, B19.20 - Unsp ecified viral hepa titis C without he patic coma Alpha Fetoprotein 02/09/23 R74.01 - Elevation of levels of live r transaminase lev els, B19.20 - Unsp ecified viral hepa titis C without he patic coma Ferritin 02/09/23 R74.01 - Elevation of levels of live r transaminase lev els, B19.20 - Unsp ecified viral hepa titis C without he patic coma Laboratory Tests 03/21/23 08:44 Estimated GFR > 60 Fasting Glucose 122 H Total Bilirubin 0.5 AST 48 H ALT 65 H Alkaline Phosphata se 86 TODAY'S VISIT [place] #Shabbir Mccann Unfortunately, they did not process the labs that I had ordered even though he did go to the labs requested. He does say that the auto body shop manager was not available that day so there may have been a miscommunication. I write down the labs are and instructions on my business card and tell them to give that to the lab when he gets they are to make sure they draw the appropriate labs. Return office visit now 4 weeks to review his results. [facility] [place] Medical History Hypovitaminosis D Diabetes mellitus Obesity (BMI 30.0-34.9) Family history of hypertension Abscess Back pain Insomnia Surgical History Hx of colonoscopy History of ear surgery Family History Father Diabetes Hypertension Stroke Mother No problems noted. Maternal Grandmother No problems noted. Maternal Grandfather No problems noted. Social History Housing: Apartment Alcohol intake: former Patient Tobacco Use Status: Current everyday Tobacco user Tobacco use type: Cigarette Cigarettes Per Day: 6 e-Cigarette/Vaping Use: Never Used Second Hand Smoke Exposure: No service: No Current occupational status: disabled Cognitive needs: No Hearing needs: No Vision needs: Yes Review of Systems Const Denies fatigue, Denies fever(s), Denies night sweats, Denies poor appetite and Denies weight loss Eyes Details: glasses Reports requires corrective lenses ENT Reports Normal hearing present, Denies dental pain, Denies dysphagia, Denies hearing loss, Denies mouth pain, Denies odynophagia, Denies throat swelling, Denies tongue swelling and Reports other (Dentition adequate) Card Reports no additional complaints Resp Reports no additional complaints GI Details: Denies abdominal pain, Denies melena, Denies bloating, Denies hematochezia, Denies constipation, Denies GI cramping, Denies dysphagia, Denies excessive flatus, Denies early satiety, Denies heartburn, Denies diarrhea, Denies nausea, Denies odynophagia, Denies vomiting and Denies hematemesis Skin/Breast Denies pruritus, Denies lesions, Denies rash and Denies jaundice Neuro Reports Normal hearing present and Denies Abnormal speech present Endo Denies fatigue Aller/Immun Denies throat swelling and Denies tongue swelling Physical Exam Vital Signs: Last Vital Signs Pulse 85 05/18/23 08:58 BP 144/89 H 05/18/23 08:58 BMI result Body Mass Index 34.4 Const General: cooperative, no acute distress, well developed and well groomed Nutritional Appearance: well nourished and obese Orientation/consciousness: oriented to person, oriented to place and oriented to time Limitations: language barrier HEENT Head: Yes normocephalic and Yes atraumatic Eyes General: appearance normal, both eyes and all related structures Pupils: Equal, round and reactive pupils present Neck Neck: Yes normal visual inspection and Yes no lymphadenopathy Thyroid: Thyroid normal Resp Effort & Inspection: normal respiratory effort and able to speak in complete sentences Auscultation: clear to auscultation bilaterally Cardio Rate: regular rate Rhythm: regular rhythm Heart sounds: Normal, physiologic split S2 sound present Peripheral pulses: radial pulses present and posterior tibial pulses present GI Inspection: No distended, No Abdominal panniculus present and Yes obesity Palpation (GI): Soft to palpation, nontender, no guarding, not rigid and No hepatosplenomegaly present Percussion: Yes normal to percussion Auscultation: normal bowel sounds Rectal Exam - Male: Yes deferred Skin General skin exam: no rashes or lesions noted, turgor normal, skin not dry, no jaundice, No spider nevi and no striae Rashes: no rashes Nails: normal Neuro General: oriented to person, oriented to place and oriented to time Cranial nerves: Yes Equal, round and reactive pupils present and Yes Normal hearing present Speech: No Abnormal speech present Extrem General: Yes normal to inspection, No clubbing, No cyanosis and No edema Psych Appearance: grossly normal and well kempt Mental Status: mental status grossly normal Speech and movement: Normal speech and movement present Affect: normal affect Attitude: cooperative Thought process: Normal thought process present and not confabulating Thought content: Normal thought content present Insight: Fair insight present (Psych) and Limited insight present (Psych) Judgement: Fair judgement present (Psych) and Limited judgement present (Psych) Results Reviewed Results Reviewed: 08:44Estimated GFR > 60Fasting Glucose 122 HTotal Bilirubin 0.5AST 48 HALT 65 HAlkaline Phosphatase 86 Assessment & Plan Assessment & Plan (1) Hepatitis C: Comment: BASELINE LABS 03/21/23 08:44 Estimated GFR > 60 Fasting Glucose 122 H Total Bilirubin 0.5 AST 48 H ALT 65 H Alkaline Phosphatase 86 ULTRASOUND OF THE ABDOMEN WITH ELASTOGRAPHY 03/15/23 (F2) IMPRESSION: 1. There is generalized increase in hepatic echotexture, consistent with fatty infiltration or hepatocellular disease. Please correlate clinically. No focal hepatic mass or intrahepatic biliary dilatation is seen. 2. Liver elastography: Measurements are suggestive of compensated advanced chronic liver disease but need further test for confirmation. 3. A 6 mm nonobstructing right renal lower pole calculus is seen. 4. Technically limited ultrasound examination of the pancreas Code(s): B19.20 - Unspecified viral hepatitis C without hepatic coma (2) Transaminitis: Code(s): R74.01 - Elevation of levels of liver transaminase levels Plan (FROM 03/2023 VISIT) NOT OBTAINED Complete Blood Count Auto Diff 02/09/23 R74. - Elevation of levels of liver transaminase levels, B19.20 - Unspecified viral hepatitis C without hepatic coma Liver Panel 02/09/23 R74. - Elevation of levels of liver transaminase levels, B19.20 - Unspecified viral hepatitis C without hepatic coma Smooth Muscle Antibody 02/09/23 R74. - Elevation of levels of liver transaminase levels, B19.20 - Unspecified viral hepatitis C without hepatic coma Hepatitis C Genotype 02/09/23 R74. - Elevation of levels of liver transaminase levels, B19.20 - Unspecified viral hepatitis C without hepatic coma HIV Ab/Ag 02/09/23 R74. - Elevation of levels of liver transaminase levels, B19.20 - Unspecified viral hepatitis C without hepatic coma Gamma Glutamyl Transpeptidase 02/09/23 R74. - Elevation of levels of liver transaminase levels, B19.20 - Unspecified viral hepatitis C without hepatic coma US abdomen comp w elastography 02/09/23 R74. - Elevation of levels of liver transaminase levels, B19.20 - Unspecified viral hepatitis C without hepatic coma Mitochondrial Antibody 02/09/23 R74. - Elevation of levels of liver transaminase levels, B19.20 - Unspecified viral hepatitis C without hepatic coma Hepatitis A,B,C Profile 02/09/23 R74. - Elevation of levels of liver transaminase levels, B19.20 - Unspecified viral hepatitis C without hepatic coma Hepatitis C Viral Load 02/09/23 R74. - Elevation of levels of liver transaminase levels, B19.20 - Unspecified viral hepatitis C without hepatic coma TSH reflex Free T4 02/09/23 R74. - Elevation of levels of liver transaminase levels, B19.20 - Unspecified viral hepatitis C without hepatic coma Ceruloplasmin 02/09/23 R74. - Elevation of levels of liver transaminase levels, B19.20 - Unspecified viral hepatitis C without hepatic coma Alpha Fetoprotein 02/09/23 R74. - Elevation of levels of liver transaminase levels, B19.20 - Unspecified viral hepatitis C without hepatic coma Ferritin 02/09/23 R74. - Elevation of levels of liver transaminase levels, B19.20 - Unspecified viral hepatitis C without hepatic coma Laboratory Tests 03/21/23 08:44 Estimated GFR > 60 Fasting Glucose 122 H Total Bilirubin 0.5 AST 48 H ALT 65 H Alkaline Phosphatase 86 TODAY'S VISIT [place] #Shabbir Mccann Unfortunately, they did not process the labs that I had ordered even though he did go to the labs requested. He does say that the auto body shop manager was not available that day so there may have been a miscommunication. I write down the labs are and instructions on my business card and tell them to give that to the lab when he gets they are to make sure they draw the appropriate labs. Return office visit now 4 weeks to review his results Coding Level of Care Code Est Pt Level 3 (11148) Diagnoses Hepatitis C B19.20 Transaminitis R74.01
[2023-05-18 08:58] VITALS: BP 144/89; PULSE 85; BMI 34.4
== END 2023-05-18 09:14 | disposition home or self-care (01) ==
PROVIDERS: PCP Internal Medicine; Visit Provider Nurse Practitioner
DX: B19.20 Unspecified viral hepatitis C without hepatic coma (principal); R74.01 Elevation of levels of liver transaminase levels
CPT/HCPCS: 99213

== ENCOUNTER 2023-06-16 10:51 | Outpatient (AMB) | payer MEDICARE, MEDICAID, SELFPAY ==
--- NOTE | 2023-06-16 10:54 | MHC.OFFVIS ---
Intake Vital Signs 06/16/23 11:02 Height 5 ft 4 in Weight 197 lb 15.602 oz BMI 34.0 BP 142/83 H Blood Pressure Location Lt brachial Position Sitting Pulse 102 H Intake Visit Reasons: 1 month Lab review liver Intake Note: Patient in follow up labs today. CC: Denies having any GI symptoms today. Manager Access Required: Yes Manager Access Name: [id number] Aris Accompanied by: Self / Same As Patient Allergies penicillin V Allergy (Intermediate, Verified 06/16/23 11:04) rash HPI 1 month Lab review liver HPI Details Assessment & Plan (1) Hepatitis C: Comment: BASELINE LABS 03/21/23 08:44 Estimated GFR > 60 Fasting Glucose 122 H Total Bilirubin 0.5 AST 48 H ALT 65 H Alkaline Phosphatase 86 ULTRASOUND OF THE ABDOMEN WITH ELASTOGRAPHY 03/15/23 (F2) IMPRESSION: 1. There is generalized increase in hepatic echotexture, consistent with fatty infiltration or hepatocellular disease. Please correlate clinically. No focal hepatic mass or intrahepatic biliary dilatation is seen. 2. Liver elastography: Measurements are suggestive of compensated advanced chronic liver disease but need further test for confirmation. 3. A 6 mm nonobstructing right renal lower pole calculus is seen. 4. Technically limited ultrasound examination of the pancreas Code(s): B19.20 - Unspecified viral hepatitis C without hepatic coma (2) Transaminitis: Code(s): R74.01 - Elevation of levels of liver transaminase levels Plan (FROM 03/2023 VISIT) NOT OBTAINED Complete Blood Cou nt Auto Diff 02/09/23 R74.01 - Elevation of levels of live r transaminase lev els, B19.20 - Unsp ecified viral hepa titis C without he patic coma Liver Panel 02/09/23 R74.01 - Elevation of levels of live r transaminase lev els, B19.20 - Unsp ecified viral hepa titis C without he patic coma Smooth Muscle Anti body 02/09/23 R74.01 - Elevation of levels of live r transaminase lev els, B19.20 - Unsp ecified viral hepa titis C without he patic coma Hepatitis C Genoty pe 02/09/23 R74.01 - Elevation of levels of live r transaminase lev els, B19.20 - Unsp ecified viral hepa titis C without he patic coma HIV Ab/Ag 02/09/23 R74.01 - Elevation of levels of live r transaminase lev els, B19.20 - Unsp ecified viral hepa titis C without he patic coma Gamma Glutamyl Tra nspeptidase 02/09/23 R74.01 - Elevation of levels of live r transaminase lev els, B19.20 - Unsp ecified viral hepa titis C without he patic coma US abdomen comp w elastography 02/09/23 R74.01 - Elevation of levels of live r transaminase lev els, B19.20 - Unsp ecified viral hepa titis C without he patic coma Mitochondrial Anti body 02/09/23 R74.01 - Elevation of levels of live r transaminase lev els, B19.20 - Unsp ecified viral hepa titis C without he patic coma Hepatitis A,B,C Pr ofile 02/09/23 R74.01 - Elevation of levels of live r transaminase lev els, B19.20 - Unsp ecified viral hepa titis C without he patic coma Hepatitis C Viral Load 02/09/23 R74.01 - Elevation of levels of live r transaminase lev els, B19.20 - Unsp ecified viral hepa titis C without he patic coma TSH reflex Free T4 02/09/23 R74.01 - Elevation of levels of live r transaminase lev els, B19.20 - Unsp ecified viral hepa titis C without he patic coma Ceruloplasmin 02/09/23 R74.01 - Elevation of levels of live r transaminase lev els, B19.20 - Unsp ecified viral hepa titis C without he patic coma Alpha Fetoprotein 02/09/23 R74.01 - Elevation of levels of live r transaminase lev els, B19.20 - Unsp ecified viral hepa titis C without he patic coma Ferritin 02/09/23 R74.01 - Elevation of levels of live r transaminase lev els, B19.20 - Unsp ecified viral hepa titis C without he patic coma Laboratory Tests 03/21/23 08:44 Estimated GFR > 60 Fasting Glucose 122 H Total Bilirubin 0.5 AST 48 H ALT 65 H Alkaline Phosphata se 86 [place] [facility] #Shabbir Mccann Unfortunately, they did not process the labs that I had ordered even though he did go to the labs requested. He does say that the assistant financial accountant was not available that day so there may have been a miscommunication. I write down the labs are and instructions on my business card and tell them to give that to the lab when he gets they are to make sure they draw the appropriate labs. Return office visit now 4 weeks to review his results LABS: (FROM 03/2023 VISIT) Laboratory Tests 03/21/23 05/18/23 05/18/23 08:44 09:43 09:43 WBC 4.8 Hgb 13.8 L Hct 42.4 MCV 85.0 MCH 27.7 Plt Count 216 Estimated GFR > 60 Ferritin 29 Total Bilirubin 0.5 Direct Bilirubin 0.2 GGT 52 H AST 61 H ALT 83 H Alkaline Phosphata se 98 TSH 1.72 Anti-Mitochondrial Ab NEGATIVE Anti-Smooth Muscle Ab 20 H Hepatitis A IgM Ab Nonreactive Hep Bs Antigen Negative Hep Bs Antibody REACTIVE Hep B Core Total A b Nonreactive Hepatitis C Ab (EI A) Reactive H HCV RNA Genotype L iPA 3 HCV RNA (PCR) IUs/ ml [id number] H HCV RNA PCR log IU s/ml 6.99 H HIV 1&2 Ab/P24 Ag 4thGn Nonreactive Laboratory Tests 05/18/23 09:43 Ceruloplasmin 28 Alpha Fetoprotein 4.6 TODAY'S VISIT [place] #[id number] Return office visit in 6 weeks to go over any test results we have at that time. Again he was treated with the Vosevi after failing Epclusa so I am uncertain what the next step would be if he is truly positive for hepatitis C unless of course is a different genotype. Since he failed the above treatments he will need to retreat wtih ribavirin. [facility] Medical History Hypovitaminosis D Diabetes mellitus Obesity (BMI 30.0-34.9) Family history of hypertension Abscess Back pain Insomnia Surgical History Hx of colonoscopy History of ear surgery Family History Father Diabetes Hypertension Stroke Mother No problems noted. Maternal Grandmother No problems noted. Maternal Grandfather No problems noted. Social History Housing: Apartment Alcohol intake: former Patient Tobacco Use Status: Current everyday Tobacco user Tobacco use type: Cigarette Cigarettes Per Day: 6 e-Cigarette/Vaping Use: Never Used Second Hand Smoke Exposure: No service: No Current occupational status: disabled Cognitive needs: No Hearing needs: No Vision needs: Yes Review of Systems Const Denies fatigue, Denies fever(s), Denies night sweats, Denies poor appetite and Denies weight loss ENT Reports Normal hearing present, Denies dental pain, Denies dysphagia, Denies hearing loss, Denies mouth pain, Denies odynophagia, Denies throat swelling, Denies tongue swelling and Reports other (Dentition adequate) Card Reports no additional complaints Resp Reports no additional complaints GI Details: Denies abdominal pain, Denies melena, Denies bloating, Denies hematochezia, Denies constipation, Denies GI cramping, Denies dysphagia, Denies excessive flatus, Denies early satiety, Denies heartburn, Denies diarrhea, Denies nausea, Denies odynophagia, Denies vomiting and Denies hematemesis Skin/Breast Denies pruritus, Denies lesions, Denies rash and Denies jaundice Neuro Reports Normal hearing present and Denies Abnormal speech present Endo Denies fatigue Aller/Immun Denies throat swelling and Denies tongue swelling Physical Exam Vital Signs: Last Vital Signs Pulse 102 H 06/16/23 11:02 BP 142/83 H 06/16/23 11:02 BMI result Body Mass Index 34.0 Const General: cooperative, no acute distress, well developed and well groomed Nutritional Appearance: well nourished and obese Orientation/consciousness: oriented to person, oriented to place and oriented to time Limitations: language barrier HEENT Head: Yes normocephalic and Yes atraumatic Eyes General: appearance normal, both eyes and all related structures Pupils: Equal, round and reactive pupils present Neck Neck: Yes normal visual inspection and Yes no lymphadenopathy Thyroid: Thyroid normal Resp Effort & Inspection: normal respiratory effort and able to speak in complete sentences Auscultation: clear to auscultation bilaterally Cardio Rate: regular rate Rhythm: regular rhythm Heart sounds: Normal, physiologic split S2 sound present Peripheral pulses: radial pulses present and posterior tibial pulses present GI Inspection: No distended, No Abdominal panniculus present and Yes obesity Palpation (GI): Soft to palpation, nontender, no guarding, not rigid and No hepatosplenomegaly present Percussion: Yes normal to percussion Auscultation: normal bowel sounds Rectal Exam - Male: Yes deferred Skin General skin exam: no rashes or lesions noted, turgor normal, skin not dry, no jaundice, No spider nevi and no striae Rashes: no rashes Nails: normal Neuro General: oriented to person, oriented to place and oriented to time Cranial nerves: Yes Equal, round and reactive pupils present and Yes Normal hearing present Speech: No Abnormal speech present Extrem General: Yes normal to inspection, No clubbing, No cyanosis and No edema Psych Appearance: grossly normal and well kempt Mental Status: mental status grossly normal Speech and movement: Normal speech and movement present Affect: normal affect Attitude: cooperative Thought process: Normal thought process present and not confabulating Thought content: Normal thought content present Insight: Fair insight present (Psych) Judgement: Fair judgement present (Psych) Results Reviewed Results Reviewed: Laboratory Tests 03/21/23 05/18/23 05/18/23 08:44 09:43 09:43 WBC 4.8 Hgb 13.8 L Hct 42.4 MCV 85.0 MCH 27.7 Plt Count 216 Estimated GFR > 60 Ferritin 29 Total Bilirubin 0.5 Direct Bilirubin 0.2 GGT 52 H AST 61 H ALT 83 H Alkaline Phosphatase 98 TSH 1.72 Anti-Mitochondrial Ab NEGATIVE Anti-Smooth Muscle Ab 20 H Hepatitis A IgM Ab Nonreactive Hep Bs Antigen Negative Hep Bs Antibody REACTIVE Hep B Core Total Ab Nonreactive Hepatitis C Ab (EIA) Reactive H HCV RNA Genotype LiPA 3 HCV RNA (PCR) IUs/ml [id number] H HCV RNA PCR log IUs/ml 6.99 H HIV 1&2 Ab/P24 Ag 4thGn Nonreactive Laboratory Tests 05/18/23 09:43 Ceruloplasmin 28 Alpha Fetoprotein 4.6 Laboratory Tests 02/07/19 09:38 Hep C Viral Load <15, <1.18 H Assessment & Plan Assessment & Plan (1) Hepatitis C: Comment: BASELINE LABS 2019 hepatitis C fibrosis panel is F 4, hepatitis C viral load is 8,800,000, genotype is 3, smooth muscle and mitochondrial antibodies are negative, alpha fetoprotein is 4.5, hepatitis-B profile is negative as is hepatitis a, ferritin is elevated at 271, AST/ALT is 38/64 with the remainder of the liver profile within normal limits, HIV screen is negative, platelets are normal at 197,000 02/07/19 09:38 Hep C Viral Load <15, <1.18 H 2019 ultrasound IMPRESSION: Echogenic liver probably representing fatty infiltration. Limited visualization of the tail the pancreas and upper and mid abdominal aorta. Small left renal cyst. REPORT SIGNED IN OTHER VENDOR SYSTEM 10/31/2018 CURRENT LABS 03/21/2302/11/2401 08:4409:4309:43 WBC 4.8 Hgb 13.8 L Hct 42.4 MCV 85.0 MCH 27.7 Plt Count 216 Estimated GFR > 60 Ferritin 29 Total Bilirubin 0.5 Direct Bilirubin 0.2 GGT 52 H AST 61 H ALT 83 H Alkaline Phosphatase 98 TSH 1.72 Anti-Mitochondrial Ab NEGATIVE Anti-Smooth Muscle Ab 20 H Hepatitis A IgM Ab Nonreactive Hep Bs Antigen Negative Hep Bs Antibody REACTIVE Hep B Core Total Ab Nonreactive Hepatitis C Ab (EIA) Reactive H HCV RNA Genotype LiPA 3 HCV RNA (PCR) IUs/ml [id number] H HCV RNA PCR log IUs/ml 6.99 H HIV 1&2 Ab/P24 Ag 4thGn Nonreactive Ceruloplasmin 28 Alpha Fetoprotein 4.6 ULTRASOUND OF THE ABDOMEN WITH ELASTOGRAPHY 03/15/23 (F2) ULTRASOUND OF THE ABDOMEN WITH ELASTOGRAPHY 03/15/23 (F2) IMPRESSION: 1. There is generalized increase in hepatic echotexture, consistent with fatty infiltration or hepatocellular disease. Please correlate clinically. No focal hepatic mass or intrahepatic biliary dilatation is seen. 2. Liver elastography: Measurements are suggestive of compensated advanced chronic liver disease but need further test for confirmation. 3. A 6 mm nonobstructing right renal lower pole calculus is seen. 4. Technically limited ultrasound examination of the pancreas Code(s): B19.20 - Unspecified viral hepatitis C without hepatic coma Plan [place] #[id number] Return office visit in 6 weeks to go over any test results we have at that time. Again he was treated with the Vosevi after failing Epclusa so I am uncertain what the next step would be if he is truly positive for hepatitis C unless of course is a different genotype. Since he failed the above treatments he will need to retreat wtih ribavirin. Medications: New owduwrxqml-qebhmzzl-sfadvzultb 400-100-100 mg (Vosevi) must administer with a meal/food 1 tab PO DAILY 30 tabs 3RF B19.20 - Unspecified viral hepatitis C without hepatic coma ribavirin must administer with food, preferably a high-fat meal 400 mg (2 x 200 mg) PO BID 120 tabs 3RF B19.20 - Unspecified viral hepatitis C without hepatic coma Coding Level of Care Code Est Pt Level 4 (78511) Diagnoses Hepatitis C B19.20
[2023-06-16 11:02] VITALS: BP 142/83; PULSE 102; BMI 34.0
== END 2023-06-16 11:35 | disposition home or self-care (01) ==
PROVIDERS: PCP Internal Medicine; Visit Provider Nurse Practitioner
DX: B19.20 Unspecified viral hepatitis C without hepatic coma (principal)
CPT/HCPCS: 99214

== ENCOUNTER → 2023-06-16 10:51 | Outpatient (BNVA) | payer MEDICARE, MEDICAID, SELFPAY | PROVIDERS: PCP Internal Medicine; Visit Provider Nurse Practitioner | DX: B19.20 Unspecified viral hepatitis C without hepatic coma (principal) | CPT/HCPCS: 99212 ==

== ENCOUNTER 2023-10-31 09:14 | Outpatient (AMB) | payer MEDICARE, MEDICAID, SELFPAY ==
[2023-10-31 09:17] VITALS: BP 130/86; BMI 33.3
--- NOTE | 2023-10-31 09:17 | MHC.PC.OV ---
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 Accompanied by: Self / Same As Patient Allergies penicillin V Allergy (Intermediate, Verified 10/31/23 09:50) rash Medication List - Last Reconciled 10/31/23 by Jonna Duarte MD blood sugar diagnostic (FreeStyle Lite Strips) Use 1 test strip once a day blood-glucose meter (FreeStyle Lite Meter kit) As directed cyclobenzaprine 10 mg PO TID 30 days lancets (FreeStyle Lancets) Use 1 lancet once a day trazodone 100 mg PO BEDTIME PRN 90 days Tobacco use date assessed: 10/31/23 Dental Screening Dental Screen Date: 10/31/23 Did you have a dental visit in the last 12 months?: No Did you have a dental problem in the last 6 months where you did not have access to dental care?: No Was dental information given to patient?: Patient has dentist HPI HPI Comments History of Present Illness Details This is a 53-year-old male that comes for his physical exam. Cologuard done 2022 was negative. Denies any acute complaints. [facility] Medical History (Updated 10/31/23 @ 10:02 by Jonna Duarte MD) Hypovitaminosis D Obesity (BMI 30.0-34.9) Family history of hypertension Abscess Back pain Insomnia Surgical History Hx of colonoscopy History of ear surgery Family History Father Diabetes Hypertension Stroke Mother No problems noted. Maternal Grandmother No problems noted. Maternal Grandfather No problems noted. Social History Housing: Apartment Alcohol intake: former Patient Tobacco Use Status: Current everyday Tobacco user Tobacco use type: Cigarette Cigarettes Per Day: 6 e-Cigarette/Vaping Use: Never Used Second Hand Smoke Exposure: No service: No Current occupational status: disabled Cognitive needs: No Hearing needs: No Vision needs: Yes Questionnaire PHQ-9 Over the last 2 weeks, how often have you been bothered by any of the following problems? 1. Little interest or pleasure in doing things: not at all 2. Feeling down, depressed, or hopeless: not at all 3. Trouble falling or staying asleep, or sleeping too much: not at all 4. Feeling tired or having little energy: not at all 5. Poor appetite or overeating: not at all 6. Feeling bad about yourself - or that you are a failure or have let yourself or your family down: not at all 7. Trouble concentrating on things, such as reading the newspaper or watching television: not at all 8. Moving or speaking so slowly that other people could have noticed. Or the opposite - being so fidgety or restless that you have been moving around a lot more than usual: not at all 9. Thoughts that you would be better off or of hurting yourself in some way: not at all Total score: 0 Depression Screening Interpretation: Negative Depression Screening Done: Yes 82575 - PHQ-9 Billing: Yes Source: Developed by Drs. Serafin Dennis, Lucian Wilson and colleagues, with an educational lucero from [employer]. Thrive Questionnaire Date Thrive assessed: 10/24/22 AUDIT C Alcohol Use Questionnaire (AUDIT-C) 1. How often do you have a drink containing alcohol?: Never Total Score: 0 Score Reviewed/Action Taken: No ALEXANDER-7 AMB Questionnaire ALEXANDER-7 Date ALEXANDER - 7 assessed: 10/31/23 Feeling nervous, anxious, or on edge: 0 = Not at all Not being able to stop or control worryin = Not at all Worrying too much about different things: 0 = Not at all Trouble relaxin = Not at all Being so restless that it is hard to sit still: 0 = Not at all Becoming easily annoyed or irritable: 0 = Not at all Feeling afraid as if something awful might happen: 0 = Not at all Total ALEXANDER-7 score (0-4 normal; 5-9 mild; 10-14 moderate; 15-21 severe): 0 Source: Developed by Drs. Serafin Dennis, Lucian Wilson and colleagues, with an educational lucero from [employer]. ALEXANDER-7 Assessment Billing ALEXANDER-7 Assessment Tool: ALEXANDER-7 Assessment 47935 Review of Systems Const All systems reviewed & are unremarkable except as noted in HPI and below Card Denies chest pain at rest, Denies chest pain with activity, Denies edema, Denies irregular heart rhythm, Denies claudication, Denies dyspnea, Denies dyspnea on exertion, Denies orthopnea, Denies paroxysmal nocturnal dyspnea and Denies slow heart rate Resp Denies cough, Denies dyspnea and Denies dyspnea on exertion GI Denies abdominal pain, Denies change in bowel habits, Denies excessive flatus, Denies nausea and Denies vomiting Physical exam (Primary Care) Vital Signs: Last Vital Signs BP 130/86 10/31/23 09:17 BMI result Body Mass Index 33.3 BMI Assessment/Plan discussion: High BMI High, discussed plan: lifestyle, weight reduction, dietary and physical activity Tobacco/Smoking Status: Tobacco use Status Tobacco use date assessed 10/31/23 10/31/23 09:21 Patient Tobacco Use Status Current everyday Tobacco 10/31/23 09:21 Tobacco use type Cigarette 10/31/23 09:21 e-Cigarette/Vaping Use Never Used 10/31/23 09:21 Are you ready to quit: No Tobacco cessation counseling provided: Yes Items discussed: [employer]uitWorks Relapse Prevention: discussed the importance of a supportive environment, discussed negative mood or depression after quitting, weight gain after smoking is common and discussed dietary, exercise and/or lifestyle changes Number of minutes spent counselin CPT code: 36408 - 4-10 Minutes PHQ-9: PHQ-9 Score PHQ-9: Total score 0 10/31/23 10:00 Depression Screening Interpretation: Negative Thrive Assessment: Date of Thrive Assessment Date Thrive assessed 10/24/22 10/31/23 09:21 [facility] Head: Yes normal to inspection, Yes normocephalic and Yes atraumatic Ears: external ears normal Eyes General: appearance normal, both eyes and all related structures Eyelids: Yes eyelids normal Conjunctivae: conjunctivae normal Neck Neck: Yes normal visual inspection and Yes supple Resp Effort & Inspection: normal respiratory effort Auscultation: clear to auscultation bilaterally Cardio Jugular venous distension: no JVD Rate: regular rate Rhythm: regular rhythm Heart sounds: S1 normal heart sound present and S2 normal heart sound present GI Inspection: Yes normal to inspection Palpation (GI): Soft to palpation and nontender Auscultation: normal bowel sounds Skin General skin exam: no rashes or lesions noted Neuro General: no focal motor deficits Extrem General: Yes full ROM Psych Appearance: grossly normal Immunizations Boostrix Tdap 2.5 Lf unit-8 mcg-5 Lf/0.5 mL intramuscular syringe Performing Provider: Jonna Duarte MD Performing Location: [facility] Administered by: RADHA Hollingsworth on 10/31/23 10:05 Dose Route Admin Location Dispensed Lot Number Expiration Date NDC Safety Tech 0.5 mL IM Left Deltoid 0.5 mL [id number] 12/19/25 09687-897-94 [place] Consolidated VIS Given Date VIS Provided VIS Publication Date 10/31/23 Single Vaccine 20 Eligibility Eligibility Date Funding Source Not [facility] Eligible 10/31/23 Private Assessment and Plan Assessment & Plan (1) Physical exam: Code(s): Z00.00 - Encounter for general adult medical examination without abnormal findings Plan: Repeat in a year. Orders: Orders TDaP Immunization Today Z23 - Encounter for immunization Coding Level of Care Code Est Pt Prev Care 40-64y(36257) Diagnoses Physical exam Z00.00 Additional Codes ALEXANDER-7 Assessment Billing - ALEXANDER-7 Assessment Tool: ALEXANDER-7 Assessment 18094 ([id number]) Vital Signs *Quality* - CPT code: 10891 - 4-10 Minutes ([id number]) Time Spent (min) 30
== END 2023-10-31 10:06 | disposition home or self-care (01) ==
PROVIDERS: PCP Internal Medicine; Visit Provider Internal Medicine
DX: Z00.00 Encounter for general adult medical examination without abnormal findings (principal); Z23 Encounter for immunization
CPT/HCPCS: 90471; 90715; 99396

== ENCOUNTER 2024-11-06 09:21 | Outpatient (AMB) | payer MEDICARE, MEDICAID, SELFPAY ==
--- NOTE | 2024-11-06 09:26 | A.OFFVIS_ITS ---
Intake Vital Signs 11/06/24 09:31 Height 5 ft 4 in Weight 191 lb BMI 32.8 BP 130/86 Blood Pressure Location Lt brachial Position Sitting Intake Visit Reasons: AWV Intake Note: Patient here for an annual wellness exam Paradichlorobenzene Tender Required: No Accompanied by: Self / Same As Patient Allergies penicillin V Allergy (Intermediate, Verified 11/06/24 09:46) rash Medication List - Last Reconciled 11/06/24 by Jonna Duarte MD blood sugar diagnostic (FreeStyle Lite Strips) Use 1 test strip once a day blood-glucose meter (FreeStyle Lite Meter kit) As directed cyclobenzaprine 10 mg PO TID 30 days lancets (FreeStyle Lancets) Use 1 lancet once a day trazodone 100 mg PO BEDTIME PRN 90 days HPI HPI Comments History of Present Illness Details The patient is a 54-year-old male presenting for a Medicare wellness exam. He received his Tdap vaccination last year, with the next dose due in 2033. The patient underwent a colonoscopy in 1995 due to rectal bleeding, which revealed a benign hyperplastic polyp. He completed a Cologuard test in 2022, which was reported as negative, with the next test scheduled for 2025. The patient smokes approximately six cigarettes a day and is not currently ready to quit smoking. He has a history of ear surgery and a family history of hepatitis A, though he himself has not been affected by the latter. [facility] handed to patient. [place] of care reviewed and updated. He is a illiterate therefore mini-mental not reliable. [facility], LAT[facility] Medical History Hypovitaminosis D Obesity (BMI 30.0-34.9) Family history of hypertension Abscess Back pain Insomnia Surgical History Hx of colonoscopy History of ear surgery Family History Father Diabetes Hypertension Stroke Mother No problems noted. Maternal Grandmother No problems noted. Maternal Grandfather No problems noted. Social History Housing: Apartment Alcohol intake: former Patient Tobacco Use Status: Current everyday Tobacco user Tobacco use type: Cigarette Cigarettes Per Day: 6 e-Cigarette/Vaping Use: Never Used Second Hand Smoke Exposure: No service: No Current occupational status: disabled Cognitive needs: No Hearing needs: No Vision needs: Yes Questionnaire Medicare Wellness Checkup [age] 65-69 What gender do you identify with?: male During the past 4 weeks, how much have you been bothered by emotional problems such as feeling anxious, depressed, irritable, sad or downhearted, and blue?: not at all During the past 4 weeks, has your physical & emotional health limited your social activities with family, friends, neighbors, or groups?: not at all During the past 4 weeks, how much bodily pain have you generally had?: mild pain During the past 4 weeks, was someone available to help you if you needed & wanted help?: no, not at all During the past 4 weeks, what was the hardest physical activity you could do for at least 2 minutes?: very light Can you get to places out of walking distance without help? (For eg., can you travel alone on buses, taxis or drive your car?): Yes Can you go shopping for groceries or clothes without someone's help?: Yes Can you prepare your own meals?: No Can you do your housework without help?: No Because of any health problems, do you need the help of another person with your personal care needs such as eating, bathing, dressing or getting around the house?: No Can you handle your own money without help?: Yes During the past 4 weeks, how would you rate your health in general?: fair During the past 4 weeks how have things been going for you?: pretty well Are you having difficulties driving your car?: no Do you always fasten your seat belt when you are in a car?: yes, usually During past 4 weeks, have you been bothered by the following: never: Falling or dizzy when standing up, Sexual problems?, Trouble eating well?, Teeth or denture problems?, Problems using the telephone? and Tiredness or fatigue? Have you fallen 2 or more times in the past year?: No Are you afraid of falling?: Yes Are you a smoker?: yes, but I'm not ready to quit During the past 4 weeks, how many drinks of wine, beer, or other alcoholic beverages did you have?: no alcohol at all Do you exercise for about 20 minutes 3 or more times a week?: no, I usually do not exercise this much Have you been given information to help with the following?: yes: Keeping track of your medications? and no: Hazards in your house that might hurt you? How often do you have trouble taking medicines the way you have been told to ta ke them?: I always take medicine as prescribed How confident are you that you can control & manage most of your health problems?: very confident What is your race?: or origin or descent Mini Mental State Exam (MMSE) Orientation What is the (year) (season) (date) (day) (month)?: year, season, date, day and month Where are we (state) (county) (town or city) (hospital) (floor)?: state, county, town or city, hospital/clinic and floor Registration Name of 3 unrelated objects clearly and slowly, then ask patient to repeat all 3 of them. (1st repeat determines score. Make sure they can repeat all three): object 1, object 2 and object 3 Recall Ask patient to repeat the 3 items from question #3.: object 1, object 2 and object 3 Language Show patient a wristwatch & ask what it is. Repeat for pencil.: watch and pencil Ask the patient to repeat the phrase 'No ifs, ands, or buts' after you.: correct Ask the patient to 'take a piece of paper with their right hand' 'fold paper in half' 'place paper on floor': take paper in right hand, fold paper in half and place paper on floor Ask patient to copy figure of intersecting pentagons exactly. Score if all 10 angles & 2 intersects are included.: all 10 angles present & 2 are intersected Score Score: 23 Activity of Daily Living Bathing - sponge bath, tub bath or shower: receives no assistance (gets in/out by self, if usual bathing means Dressing - getting clothes from closets & drawers, including inner/outer garments & fasteners.: gets clothes & gets completely dressed without help Toileting - going to the 'toilet room' for urine/bowel elimination & cleaning self/arranging clothes: goes to toilet room, cleans self, arranges clothes without help Transfer: moves in & out of bed and chair without help (may use support object) Continence: has occasional 'accidents' Feeding: feeds self without help Total Score: 0 Information obtained from: patient Using telephone: independent Traveling: independent Shopping: independent Preparing meals: independent Housework: independent Taking medicine: independent Managing money: independent PHQ-9 Over the last 2 weeks, how often have you been bothered by any of the following problems? 1. Little interest or pleasure in doing things: not at all 2. Feeling down, depressed, or hopeless: not at all 3. Trouble falling or staying asleep, or sleeping too much: several days 4. Feeling tired or having little energy: several days 5. Poor appetite or overeating: several days 6. Feeling bad about yourself - or that you are a failure or have let yourself or your family down: not at all 7. Trouble concentrating on things, such as reading the newspaper or watching television: several days 8. Moving or speaking so slowly that other people could have noticed. Or the opposite - being so fidgety or restless that you have been moving around a lot more than usual: several days 9. Thoughts that you would be better off or of hurting yourself in some way: not at all Total score: 5 Depression Screening Interpretation: Positive Depression Screening Follow-up: E renettaing condition, In treatment and Follow-up Visit Requested Depression Screening Done: Yes 53571 - PHQ-9 Billing: Yes Source: Developed by Drs. Serafin Dennis, Lula Mohr, Lucian Mcmillan and colleagues, with an educational lucero from [employer]. AUDIT C Alcohol Use Questionnaire (AUDIT-C) 1. How often do you have a drink containing alcohol?: Never Total Score: 0 Score Reviewed/Action Taken: No ALEXANDER-7 AMB Questionnaire ALEXANDER-7 Date ALEXANDER - 7 assessed: 11/06/24 Feeling nervous, anxious, or on edge: 0 = Not at all Not being able to stop or control worryin = Not at all Worrying too much about different things: 0 = Not at all Trouble relaxin = Not at all Being so restless that it is hard to sit still: 0 = Not at all Becoming easily annoyed or irritable: 0 = Not at all Feeling afraid as if something awful might happen: 0 = Not at all Total ALEXANDER-7 score (0-4 normal; 5-9 mild; 10-14 moderate; 15-21 severe): 0 Source: Developed by Drs. Serafin Dennis, Lula Mohr, Lucian Mcmillan and colleagues, with an educational lucero from [employer]. ALEXANDER-7 Assessment Billing ALEXANDER-7 Assessment Tool: ALEXANDER-7 Assessment 35394 Thrive Questionnaire Date Thrive assessed: 10/24/22 Review of Systems Const All systems reviewed & are unremarkable except as noted in HPI and below Card Denies chest pain at rest, Denies chest pain with activity, Denies edema, Denies irregular heart rhythm, Denies claudication, Denies dyspnea, Denies dyspnea on exertion, Denies orthopnea, Denies paroxysmal nocturnal dyspnea and Denies slow heart rate Resp Denies cough, Denies dyspnea and Denies dyspnea on exertion GI Denies abdominal pain, Denies change in bowel habits, Denies excessive flatus, Denies nausea and Denies vomiting Physical Exam Vital Signs: Last Vital Signs BP 130/86 11/06/24 09:31 BMI result Body Mass Index 32.8 Const Orientation/consciousness: patient oriented x3 Resp Effort & Inspection: normal respiratory effort Auscultation: clear to auscultation bilaterally Cardio Jugular venous distension: no JVD Rate: regular rate Rhythm: regular rhythm Heart sounds: S1 normal heart sound present and S2 normal heart sound present Neuro General: patient oriented x3 and no focal motor deficits Romberg Test: Negative Extrem General: Yes full ROM Assessment & Plan Assessment & Plan (1) Encounter for Medicare annual wellness exam: Code(s): Z00.00 - Encounter for general adult medical examination without abnormal findings Plan The plan includes ordering blood work as the patient has not had recent labs, which will help in assessing his cholesterol, glucose, renal, and liver function. The patient is advised to continue with regular screenings, including the next Cologuard test in 2025, and to maintain up-to-date vaccinations, with the next Tdap due in 2033. Smoking cessation was discussed, but the patient is not ready to quit at this time. Patient was informed and verbally consented to the use of an ambient scribe for clinic note documentation during this visit.During the visit, I discussed the importance of regular screenings and vaccinations with the patient, emphasizing the need for the next Cologuard test in 2025 and the Tdap vaccination in 2033. We also talked about the benefits of smoking cessation, although the patient is not ready to quit at this time. Orders: Orders Lipid Panel Today E78.5 - Hyperlipidemia, unspecified Comprehensive [place]. Panel Fast Today Z00.00 - Encounter for general adult medical examination without abnormal findings Patient Instructions: - Continue with regular screenings, including the next Cologuard test in 2025. - Maintain up-to-date vaccinations, with the next Tdap due in 2033. - Consider smoking cessation options when ready. Quality Reporting (2019) Depression/Bipolar (159/160/161/177) PHQ-9: Total score: 5 Coding Level of Care Code Medicare First (G0438) Diagnoses Encounter for Medicare annual wellness exam Z00. CPT Codes Advance Care Planning - Time spent: 1-15 minutes, on File ([id number]) Additional Codes PHQ-9 - 15141 - PHQ-9 Billing: Yes ([id number]) ALEXANDER-7 Assessment Billing - ALEXANDER-7 Assessment Tool: ALEXANDER-7 Assessment 32316 ([id number]) Time Spent (min) 33 Advance Care Planning Advance Care Planning discussion: Exists, not on file Date of discussion: 11/06/24 Who was present: patient and me Forms completed: Health Care Proxy Time spent: 1-15 minutes, on File Actual minutes spent: 1
[2024-11-06 09:31] VITALS: BP 130/86; BMI 32.8
--- OUTSIDE RECORDS SUMMARY | 2024-11-06 09:51 | XMS_ITS | Encounter Summary ---
Author Organization [employer] [facility] Address [address] [place] [address] [address] [place] [address] Care Team Providers Care Stem Lead Former Name Role Phone Unavailable Primary Care Provider Unavailabl e Encounter Details Date Type Department Care Team (Latest Contact Info) Description 07/11/2018 Abstract C CONVERSIONS Dental, Provider, DDS Social History Tobacco Use Types Packs/Day Years Used Date Smoking Tobacco: Never Assessed Sex and Gender Information Value Date Recorded Sex Assigned at Male 02/07/2022 10:18 AM EDT Legal Sex Male 10:18 AM EDT Gender Identity Male 02/07/2022 10:18 AM EDT Sexual Orientation Straight 02/07/2022 10 :18 AM EDT documented as of this encounter Plan of Treatment Not on file documented as of this encounter Visit Diagnoses Not on filedocumented in this encounter
== END 2024-11-06 10:04 | disposition home or self-care (01) ==
LOC: HO.HMCH 09:21
PROVIDERS: PCP Internal Medicine; Visit Provider Internal Medicine
DX: Z00.00 Encounter for general adult medical examination without abnormal findings (principal)

== ENCOUNTER → 2024-11-06 09:21 | Outpatient (BNVA) | payer MEDICARE, MEDICAID, SELFPAY | PROVIDERS: PCP Internal Medicine; Visit Provider Internal Medicine | DX: Z00.00 Encounter for general adult medical examination without abnormal findings (principal); E78.5 Hyperlipidemia, unspecified; F17.210 Nicotine dependence, cigarettes, uncomplicated; Z71.6 Tobacco abuse counseling | CPT/HCPCS: 96127 ==